=== PATIENT | male | born 2000 | race Caucasian/White ===

== ENCOUNTER 2022-05-10 13:32 | Emergency (ER) | payer MEDICAID ==
[~2022-05-10] VITALS: Ht 152.4 cm; Wt 46.0 kg
[2022-05-10 13:59] VITALS: BP 125/60
== END 2022-05-10 17:34 | disposition home or self-care (01) ==
LOC: ER 13:56
DX: Z00.00 Encounter for general adult medical examination without abnormal findings (principal)
CPT/HCPCS: 99281